=== PATIENT | female | born 1930 | race Caucasian/White ===

== ENCOUNTER 2018-09-05 14:07 | Emergency (ER) | payer MEDICARE, BC, OTHER ==
[~2018-09-05] VITALS: Ht 172.7 cm; Wt 70.3 kg
[2018-09-05] MEDS ORDERED: CELEXA10 MG PO (14:16)
[2018-09-05] MEDS ORDERED: NAMENDA 10 MG T10 MG PO ×2 (14:16→14:17)
[2018-09-05] MEDS ORDERED: RAZADYNE4 MG PO (14:16)
[2018-09-05] MEDS ORDERED: TUMS PO (14:16)
[2018-09-05] MEDS ORDERED: OSTERA TABLET1 EAC1 PO (14:17)
[2018-09-05] MEDS ORDERED: PRESERVISION A1 EAC2 PO (14:17)
[2018-09-05] MEDS ORDERED: XALATAN2.5 ML OPHTHALMIC (14:17)
[2018-09-05] MEDS ORDERED: DORZOLAMIDE 2%10 ML OPHTHALMIC (14:17)
[2018-09-05 14:36] LABS: ABSOLUTE BASOPHILS 0.1 thou/uL (0.0-0.2); ABSOLUTE EOSINOPHILS 0.1 thou/uL (0.0-0.7); ABSOLUTE LYMPHOCYTES 1.3 thou/uL (0.8-5.3); ABSOLUTE MONOCYTES 0.6 thou/uL (0.0-1.2); ABSOLUTE NEUTROPHILS 3.6 thou/uL (1.6-8.1); BASOPHILS 1.4 %; EOSINOPHILS 2.3 %; HEMATOCRIT 36.5 % (37.0-47.0); HEMOGLOBIN 12.3 gm/dL (12.0-15.0); LYMPHOCYTES 22.8 %; MCH 30.6 pg (26.0-34.0); MCHC 33.6 g/dL (28.0-37.0); MONOCYTES 10.9 %; MPV 6.2 fl. (7.2-11.1); NUCLEATED RBCS 0 /100WBC; PLATELET COUNT* 301 thou/uL (150-400); POLYS 62.6 %; RDW-CV 13.5 % (10.5-14.5); WBC 5.7 thou/uL (4.0-11.0)
[2018-09-05 14:40] LABS: ANION GAP 10 mmol/L (7-16); BUN 12 mg/dL (7-18); CALCIUM 8.6 mg/dL (8.5-10.1); CHLORIDE 103 mmol/L (98-107); CO2 26 mmol/L (21-32); CREATININE 1.2 mg/dL (0.6-1.3); GLUCOSE 140 mg/dL (70-99); POTASSIUM 3.7 mmol/L (3.5-5.1); SODIUM 139 mmol/L (136-145)
[2018-09-05 14:48] LABS: ALBUMIN 3.2 g/dL (3.4-5.0); ALKALINE PHOSPHATASE 68 U/L (46-116); SGOT 9 U/L (15-37); SGPT 13 U/L (30-65); TOTAL BILIRUBIN 0.4 mg/dL (<0.1-1.0); TROPONIN-I LEVEL <0.06 ng/mL (<0.06)
[2018-09-05 15:29] LABS: URINE BILIRUBIN NEGATIVE (Negative); URINE BLOOD NEGATIVE (Negative); URINE CLARITY CLEAR; URINE COLOR YELLOW; URINE GLUCOSE-RANDOM NEGATIVE (Negative); URINE KETONES NEGATIVE (Negative); URINE LEUKOCYTES-REFLEX NEGATIVE (Negative); URINE NITRITE-REFLEX NEGATIVE (Negative); URINE PROTEIN NEGATIVE (Negative); URINE SPECIFIC GRAVITY 1.025 (1.005-1.030); URINE UROBILINOGEN 0.2 E.U./dl (0.2-1.0)
[2018-09-05 16:15] VITALS: BP 152/75
--- NOTE | 2018-09-06 16:53 | EKG ---
[place] [address] ELECTROCARDIOGRAM REPORT Name: GALINA SELF Room: [facility]#: [id number] Admission: 09/05/18 Attend Phys: Discharge: 09/05/18 Date of : 34 Report #: [id number] THIS REPORT FOR: //name// [facility] ED Test Date: 2018-09-05 Test Time: 16:03:14 Pat Name: GALINA SELF Department: Room: Gender: F Hemodialysis Rn: MARC : 1930 Requested By: Kirsten Valderrama Order Number: [id number] MD: Dash Prince Measurements Intervals [place] Rate: 79 P: 42 ME: 150 QRS: 13 QRSD: 79 T: 47 QT: 408 QTc: 468 Interpretive Statements Sinus rhythm Borderline low voltage, extremity leads Baseline wander in lead(s) V4 No previous ECG available for comparison Electronically Signed On 09-06-2018 16:53:19 [employer] by Dash Prince [email or web address] <ELECTRONICALLY SIGNED> By: Dash Prince MD, [facility] 09/06/18 1653 D: [id number] Dash Prince MD, FACC /EPI
== END 2018-09-05 16:16 | disposition home or self-care (01) ==
LOC: M.ERS 14:07
PROVIDERS: Personal Emergency Response Attendant
DX: R55 Syncope and collapse (principal); G30.9 Alzheimer's disease, unspecified; F02.80 Dementia in other diseases classified elsewhere, unspecified severity, without behavioral disturbance, psychotic disturbance, mood disturbance, and anxiety